=== PATIENT | male | born 1935 | race Hispanic/Latino ===

== ENCOUNTER → 2024-12-11 | Day surgery (SDC) | payer MEDICARE, OTHER ==
[2024-12-09 08:40] LABS: BASOPHILS % 0.5 % (0.0-1.0); EOSINOPHILS % 13.3 % (0.0-6.0); LYMPHOCYTES % 12.7 % (18.0-39.1); MONOCYTES % 6.0 % (4.4-11.3); NEUTROPHILS % 66.8 % (38.7-80.0); RED CELL DISTRIBUTION WIDTH 14.5 % (11.7-14.4)
[2024-12-09 09:17] LABS: EST GLOMERULAR FILTRATION RATE 75.0 ML/MIN (>=60)
[~2024-12-11] MED LIST: ACETAMINOPHEN 1000 MG/100 ML 100 ML IV ONE; ALLOPURINOL300 MG PO; ASPIRIN 325 MG TAB PO SCH; ASPIRIN CHEW81 MG PO; CELECOXIB 100 MG CAP PO SCH; DEXAMETHASONE SOD PHOS INJ 4 MG/ML SDV ONE; DOCUSATE SODIUM 100 MG CAP PO PRN; FENTANYL CITRATE/PF 100MCG/2 ML INJ ONE; FLOMAX0.4 MG PO; FUROSEMIDE40 MG PO; HYDROCODONE/APAP 7.5MG-325MG 1 EA TAB ONE; HYDROCODONE/APAP 7.5MG-325MG 1 EA TAB PO PRN; LACTATED RINGER'S 1,000 ML ONE; LIDOCAINE HCL 2% LOCAL INJ 5 ML SDV VIAL INJ ONE; LIPITOR10 MG PO; LOSARTAN POTAS100 MG PO; ONDANSETRON HCL INJ 2MG/ML 2ML 2 MG/ML VIAL IV PRN; ONDANSETRON HCL INJ 2MG/ML 2ML 2 MG/ML VIAL ONE; POTASSIUM CHLO20 ME1 PO; PROPOFOL IV EMULSION 10 MG/ML 20 ML VIAL ONE; ROCURONIUM BROMIDE 1 ML IV ONE; ROPIVACAINE/EPI/CLONIDINE/KET 50 ML SYRINGE INJ ONE; SEVOFLURANE INHAL SOLN 250 ML PEN BTL ONE; SUGAMMADEX SODIUM 200 MG/2 ML VIAL IV ONE; [UNRECOGNIZED DRUG - REMARK] INJ
[2024-12-11] MEDS: LACTATED RINGER'S 1,000 ML ONE (06:43)
[2024-12-11] MEDS: CEFAZOLIN SODIUM 2 GM ONE (06:43)
[2024-12-11 10:40] VITALS: TEMP 97
[2024-12-11] MEDS: FENTANYL CITRATE/PF 100MCG/2 ML INJ IV ONE (10:53)
[2024-12-11] MEDS: HYDROCODONE/APAP 7.5MG-325MG 1 EA TAB PO ONE (11:50)
[2024-12-11] MEDS: ONDANSETRON HCL INJ 2MG/ML 2ML 2 MG/ML VIAL IV ONE (12:22)
[2024-12-11 12:55] VITALS: BP 107/70; PULSE 83; RESP 16; O2SAT 99
== END | disposition home or self-care (01) ==
LOC: OR 05:34
PROVIDERS: ATTEND Orthopaedic Surgery Adult Reconstructive Orthopaedic Surgery
DX: M16.11 Unilateral primary osteoarthritis, right hip (principal); I10 Essential (primary) hypertension; E78.5 Hyperlipidemia, unspecified; E66.01 Morbid (severe) obesity due to excess calories; M06.9 Rheumatoid arthritis, unspecified; M54.9 Dorsalgia, unspecified; Z91.041 Radiographic dye allergy status; Z01.810 Encounter for preprocedural cardiovascular examination; Z01.812 Encounter for preprocedural laboratory examination; Z01.818 Encounter for other preprocedural examination; Z79.82 Long term (current) use of aspirin; Z79.899 Other long term (current) drug therapy
CPT/HCPCS: 27130; 36415; 71046; 72170; 80048; 85025; 86850; 86900; 93005; 97110; 97116; 97161; 97530; C1713 ×4; C1776 ×3; J0131; J1100; J2003; J2405; J2704; J3010; J7121